=== PATIENT | female | born 1950 | race Two or more races ===

== ENCOUNTER 2017-12-02 08:55 | Outpatient (CLI) | payer OTHER | END 2017-12-02 09:05 | disposition home or self-care (01) | LOC: SONOGRAMA 08:55 | DX: E04.1 Nontoxic single thyroid nodule (principal) ==

== ENCOUNTER 2023-02-18 09:16 | Outpatient (CLI) | payer OTHER | END 2023-02-18 09:19 | disposition home or self-care (01) | LOC: SONOGRAMA 09:16 | PROVIDERS: ATTEND Pathology Anatomic Pathology & Clinical Pathology | DX: D34 Benign neoplasm of thyroid gland (principal); E04.9 Nontoxic goiter, unspecified ==